=== PATIENT | male | born 1990 | race Caucasian/White ===

== ENCOUNTER 2016-08-04 10:21 | Day surgery (SDC) | payer OTHER ==
--- NOTE | ~2016-08-04 | CN ---
Consultation Report [facility] [address] [place]. [address] NAME: MARIAN HOLLOWAY : 89 STATUS : REG [facility]#: [id number] AGE: 25 ADM/REG DATE : 08/04/16 MR#: [id number] REPORT SERV DATE: 08/04/16 DICTATED BY: YOAN TIJERINA DATE: 08/04/16 REPORT STATUS : Draft TRANSCRIBED BY: MODL DATE: 08/04/16 CONSULTATION DATE OF CONSULTATION: Dr. Arellano: Thank you for requesting my opinion regarding evaluation and management of Mr. Marian Holloway's left upper lobe lung nodule. Mr. Holloway is an extremely pleasant 25-year-old gentleman, with a significant past medical history of obesity, fatty liver disease, suspected sleep apnea, who presents to [facility] for formal evaluation of a left upper lobe 2 cm spiculated lung lesion. Mr. Holloway presented to the [place] emergency room on 06/25/2016, for severe left-sided chest pain. He has a strong family history of cardiac disease in his family. He underwent a workup including EKG, cardiac enzymes, and a CT scan of the chest. Cardiac workup was negative. However, the CT scan of the chest demonstrated a sharply marginated mass in the anterior segment of the left upper lobe measuring 1.3 x 2.0 x 1.2 cm. The patient is not a current smoker, but smoked cigars in the past. He denies any history of current fevers, chills, night sweats, chest pain, palpitations, nausea, vomiting, diarrhea, or constipation. He remains active. He does have typical exertional dyspnea well localized to the chest, nonradiating with no significant alleviating or exacerbating factors. He does complain of symptoms of nasal congestion and dizziness. He works as a mechanical manufacturing engineer and has no clear exposures to asbestos breaks. REVIEW OF SYSTEMS: A detailed 14-point review of systems was completed. Pertinent positives and negatives are listed above. ALLERGIES: NO KNOWN DRUG ALLERGIES. HOME MEDICATIONS: Meclizine. PAST MEDICAL HISTORY: 1. Fatty liver disease. 2. High blood pressure. 3. Obesity. 4. Suspected sleep apnea. 5. History of acute maxillary sinusitis. 6. Left upper lobe lung nodule. PAST SURGICAL HISTORY: None. FAMILY HISTORY: Hypertension, cerebrovascular accident, and cardiac disease. PHYSICAL EXAMINATION: VITAL SIGNS: Reviewed and located in the paper chart. GENERAL: In no acute distress. Able Consultation Report [facility] [address] [facility] [place]. [address] NAME: MARIAN HOLLOWAY : [birth year] STATUS : REG [facility] PAT#: [id number] AGE: 25 ADM/REG DATE : 08/04/16 MR#: [id number] REPORT SERV DATE: 08/04/16 DICTATED BY: YOAN TIJERINA DATE: 08/04/16 REPORT STATUS : Draft TRANSCRIBED BY: MODAlicia DATE: 08/04/16 to communicate in full paragraphs at a time. HEENT: Normocephalic and atraumatic. Pupils are equal, round, and reactive to light and accommodation. Posterior oropharynx is clear. NECK: No JVD. No LAD. Trachea midline. CARDIOVASCULAR: Regular rate and rhythm. S1 and S2 present. LUNGS: Clear to auscultation bilaterally. ABDOMEN: Nontender, nondistended, and soft. Positive bowel sounds. EXTREMITIES: No clubbing, cyanosis, or edema. SKIN: No new rashes, lesions, or ulcers. PSYCHIATRIC: Alert and oriented x3. Appropriate mood and affect. Appropriate insight and judgment. NEUROLOGIC: 5/5 strength in upper and lower extremities. Cranial nerves II through XII intact. Gait not tested. DTRs not performed. DIAGNOSTIC DATA: CT scan of the chest performed at [facility] on 06/25/2016, was personally reviewed by me and up loaded into the [facility] system. There was no evidence of a pulmonary embolism. There is a sharply marginated mass with spiculations located in the anterior segment of the left upper lobe. No significant adenopathy was noted. ASSESSMENT AND PLAN: Mr. Marian Holloway is a pleasant 25-year-old gentleman, with a significant past medical history of remote tobacco abuse, obesity, hypertension, and suspected sleep apnea, who presents to [facility] for formal evaluation of a left upper lobe 1.3 x 2.0 x 1.2 cm. The lung nodule does not enhance centrally nor any calcifications. There is no other obvious masses, effusions, or infiltrates. The clinical and radiographic presentation could be consistent with an indolent tumor such as a carcinoid given his age, primary bronchogenic carcinoma, or an inflammatory process such as a granuloma. According to the [facility] solitary pulmonary nodule calculator, given his prior cigar smoking, his probability of malignancy is 33.5%. At this point, Mr. Holloway and I discussed in detail potential options including CT-guided needle biopsy, surgical procedure, or EBUS and navigation bronchoscopy to better delineate the underlying cause of his left upper lobe lung nodule. We also briefly discussed continued surveillance imaging. After careful discussion of the risks, benefits, and alternatives to each of these procedures, or pathways, we agreed to proceed forward with EBUS and navigation bronchoscopy. The patient is aware that the procedure is associated with potential life-threatening risks, including lung collapse, respiratory failure, and even . RECOMMENDATIONS: A summary of my recommendations are as follows: 1. Proceed with EBUS and navigation bronchoscopy. 2. If found to have negative on-site, we will perform perceptive test. 3. The patient will follow up in clinic [facility]. Consultation Report [address] [place]. [address] NAME: MARIAN HOLLOWAY : [birth year] STATUS : REG [facility] PAT#: [id number] AGE: 25 ADM/REG DATE : 08/04/16 MR#: [id number] REPORT SERV DATE: 08/04/16 DICTATED BY: YOAN TIJERINA DATE: 08/04/16 REPORT STATUS : Draft TRANSCRIBED BY: MIMI DATE: 08/04/16 Thank you for allowing me to participate in Mr. Holloway's care. CRISTÓBAL/MIMI Yoan Tijerina M.D. / [id number] CC: María Moreno MD
--- NOTE | ~2016-08-04 | EGD ---
EGD REPORT [facility] [address] [address] NAME: MARIAN HOLLOWAY : [birth year] STATUS : REG [facility]#: [id number] AGE: 25 ADM/REG DATE : 08/04/16 MR#: [id number] REPORT SERV DATE: 08/04/16 DICTATED BY: MARIA GUADALUPE TIJERINA DATE: 08/04/16 REPORT STATUS : Draft TRANSCRIBED BY: [facility] DATE: 08/04/16 Pulmonology Patient Name: Marian Holloway Procedure Date: 08/04/2016 12:06 PM Date of : 1990 Attending MD: SARA TIJERINA MD Procedure Date No Time: 08/04/2016 Procedure: EBUS/NAVIGATIONAL BRONCHOSCOPY Indications: SUKHJINDER 2 cm lung nodule Providers: SARA TIJERINA MD Referring MD: Vladimir Arellano Medicines: Lidocaine 2% 20 mL Complications: No immediate complications Procedure: Pre-Anesthesia Assessment: - A History and Physical has been performed. Patient meds and allergies have been reviewed. The risks and benefits of the procedure and the sedation options and risks were discussed with the patient. All questions were answered and informed consent was obtained. Patient identification and proposed procedure were verified prior to the procedure by the physician and the nurse in the pre-procedure area in the procedure room. Mental Status Examination: alert and oriented. Airway Examination: normal oropharyngeal airway. Respiratory Examination: clear to auscultation. CV Examination: normal and RRR, no murmurs, no S3 or S4. ASA Grade Assessment: III - A patient with severe systemic disease. After reviewing the risks and benefits, the patient was deemed in satisfactory condition to undergo the procedure. The anesthesia plan was to use general anesthesia. Immediately prior to administration of medications, the patient was re-assessed for adequacy to receive sedatives. The heart rate, respiratory rate, oxygen saturations, blood pressure, adequacy of pulmonary ventilation, and response to care were monitored throughout the procedure. The physical status of the patient was re-assessed after the procedure. After obtaining informed consent, the BF [id number] was introduced through the mouth, via the endotracheal tube (the patient was intubated for the procedure) and advanced to the tracheobronchial tree. the Bronchoscope was introduced through the mouth, via the endotracheal tube (the patient was intubated for the procedure) and advanced to the tracheobronchial tree. The procedure was accomplished without difficulty. The patient EGD REPORT [address] [address] NAME: MARIAN HOLLOWAY : [birth year] STATUS : REG [facility] PAT#: [id number] AGE: 25 ADM/REG DATE : 08/04/16 MR#: [id number] REPORT SERV DATE: 08/04/16 DICTATED BY: MARIA GUADALUPE TIJERINA DATE: 08/04/16 REPORT STATUS : Draft TRANSCRIBED BY: [employer] DATE: 08/04/16 tolerated the procedure well. Findings: The endotracheal tube is in good position. The visualized portion of the trachea is of normal caliber. The franklin is sharp. The tracheobronchial tree was examined to at least the first subsegmental level. Bronchial mucosa and anatomy are normal; there are no endobronchial lesions, and no secretions. EBUS TBNA of lymph node level 11R x 4 passes for cytology EBUS TBNA of lymph node level 7 x 4 passes for cytology EBUS TBNA of lymph node level 11L x 4 passes for cytology Using SuperDimension Edge catheter 180,peripheral probe EBUS 17s, and fluoroscopy, I performed the following biopsies: SUKHJINDER lung nodule transbronchial needle aspirates x 13 passes for cytology SUKHJINDER lung nodule transbronchial brush biopsy x 1 pass for cytology SUKHJINDER lung nodule transbronchial forcep biopsies x 10 passes for histopathology ANTHONY endobronchial brush biopsies were performed for the Percepta Bronchoalveolar lavage was performed in the left upper lobe of the lung and sent for cell count, cytology, bacterial culture, viral smears \\T\\ culture, and fungal and AFB analysis. 180 mL of fluid were instilled. 60 mL were returned. Impression: Rapid On-Site Evaluation (GEOVANI): Preliminary cytology is "benign lesion, mostly hemorrhagic, no tumor seen" (final results are pending). Recommendation: - Await test results. - Chest X-ray. - Follow up with [facility] - Follow up Percepta results Attending Participation: I personally performed the entire procedure. SARA TIJERINA MD 08/04/2016 2:52 PM This report has been signed electronically. Number of Addenda: 0 Note Initiated On: 08/04/2016 12:06 PM [id number] [id number]
[2016-08-04 11:00] LABS: BASOPHILS 0.3 %; BASOPHILS ABSOLUTE 0.02 10/3/uL (0.0-0.16); EOSINOPHILS 0.5 %; EOSINOPHILS ABSOLUTE 0.04 10/3/uL (0.0-0.53); HEMATOCRIT 46.6 % (40.0-51.0); HEMOGLOBIN 16.6 g/dL (13.6-17.8); IMMATURE GRANULOCYTES 0.7 %; IMMATURE GRANULOCYTES ABSOLUTE 0.05 10/3/uL (0.0-0.11); MANUAL DIFF NO %; MEAN CORPUS HGB CONC 35.6 g/dL (32.0-36.0); MEAN CORPUSCULAR HEMOGLOB 28.8 pg (26.0-34.0); MEAN CORPUSCULAR VOLUME 80.9 fL (80-100); MONOCYTES ABSOLUTE 0.38 10/3/uL (0.21-1.20); NEUTROPHILS 60.5 %; NEUTROPHILS ABSOLUTE 4.58 10/3/uL (2.02-8.40); PLATELET COUNT 236 10/3/uL (150-400); RED CELL COUNT 5.76 10/6/uL (4.7-6.1); WHITE BLOOD CELLS 7.6 10/3/uL (4.5-10.5)
[2016-08-04 11:11] LABS: PARTIAL THROMBO TIME 27.7 SEC (22.5-37.2); PROTIME (NOT ORD) 13.3 SEC (12.0-14.5)
[2016-08-04 18:44] LABS: BD FL LYMPH (NOT ORD) 27 %; BF BASO (NOT OF) 0 %; BF LARGE MONONUCLEAR 71 %; BODY FLUID EOS (NOT ORD) 0 %; BODY FLUID SEG (NOT ORD) 2 %
[2016-08-04 18:45] LABS: BD FL SOURCE (NOT ORD) BAL; BF TOTAL CELL CT (NOT ORD 203 /MM3; BODY FLUID RBC (NOT ORD) 1000 /MM3
== END 2016-08-04 18:13 | disposition home or self-care (01) ==
LOC: DMU 10:21
PROVIDERS: Internal Medicine
PROC: 0B988ZX Drainage of Left Upper Lobe Bronchus, Via Natural or Artificial Opening Endoscopic, Diagnostic (ICD-10-PCS; principal; 2016-08-04 11:00)
PROC: 0BBG8ZX Excision of Left Upper Lung Lobe, Via Natural or Artificial Opening Endoscopic, Diagnostic (ICD-10-PCS; 2016-08-04 11:00)
PROC: 07B74ZX Excision of Thorax Lymphatic, Percutaneous Endoscopic Approach, Diagnostic (ICD-10-PCS; 2016-08-04 11:00)
PROC: 0BB58ZX Excision of Right Middle Lobe Bronchus, Via Natural or Artificial Opening Endoscopic, Diagnostic (ICD-10-PCS; 2016-08-04 11:00)
PROC: 0BB88ZX Excision of Left Upper Lobe Bronchus, Via Natural or Artificial Opening Endoscopic, Diagnostic (ICD-10-PCS; 2016-08-04 11:00)
PROC: 3E1F88Z Irrigation of Respiratory Tract using Irrigating Substance, Via Natural or Artificial Opening Endoscopic (ICD-10-PCS; 2016-08-04 11:00)
DX: R91.1 Solitary pulmonary nodule (principal); E66.9 Obesity, unspecified; K76.0 Fatty (change of) liver, not elsewhere classified; Z82.3 Family history of stroke
CPT/HCPCS: 71010; 85025; 85610; 85730; 87015; 87070; 87102; 87116; 87205; 88112; 88172; 88173; 88177; 88305; 88333; 89051; 93005; C1725; C1769; J2250; J2405; J2710; J3010